=== PATIENT | female | born 1960 | race Two or more races ===

== ENCOUNTER 2016-10-26 16:28 | Emergency (ER) | payer OTHER ==
[~2016-10-26] VITALS: Ht 160 cm; Wt 89.1 kg
[2016-10-26 16:30] VITALS: BP 136/98
[2016-10-26 17:58] LABS: HIV 1&2 ANTIBODY SCREEN Nonreactive (Nonreactive); HIV-1 p24 ANTIGEN Nonreactive (Nonreactive)
[2016-10-26 18:16] LABS: HEP B SURF. AB < 3.1 mIU/mL (0.0-10.0)
[2016-10-26 18:55] LABS: HEPATITIS C VIRUS ANTIBODY Nonreactive (Nonreactive)
== END 2016-10-26 18:07 | disposition home or self-care (01) ==
LOC: ED 17:45
DX: S61.031A Puncture wound without foreign body of right thumb without damage to nail, initial encounter (principal); I10 Essential (primary) hypertension; W46.1XXA Contact with contaminated hypodermic needle, initial encounter; Y93.89 Activity, other specified; Y92.69 Other specified industrial and construction area as the place of occurrence of the external cause; Y99.9 Unspecified external cause status
CPT/HCPCS: 36415; 86703; 86705; 86706; 86803; 87340; 87899; 99284; G0435